=== PATIENT | female | born 1950 | race Caucasian/White ===

== ENCOUNTER 2022-11-13 20:14 | Emergency (ER) | payer MEDICARE ==
[2022-11-13 22:04] LABS: GLUCOSE, URINE (UA) NEGATIVE (NEGATIVE); KETONES,URINE (UA) TRACE mg/dL (NEGATIVE); LEUKOCYTE ESTERASE, URINE MODERATE (NEGATIVE); NITRITE,URINE POSITIVE (NEGATIVE); OCCULT BLOOD,URINE LARGE (NEGATIVE); PROTEIN,URINE >=300 mg/dL (NEGATIVE); UROBILINOGEN,URINE 1 (NORMAL) E.U./dL (NORMAL)
[2022-11-13 22:11] LABS: BILIRUBIN,URINE NEGATIVE (NEGATIVE); CLARITY,URINE CLOUDY (CLEAR); ICTOTEST,URINE NEGATIVE
[2022-11-13] MEDS ORDERED: NITROFURANTOIN MACRO 100 MG CAPSULE PO STA (22:12)
[2022-11-13 22:15] LABS: BACTERIA,URINE Few /HPF (None Seen); RBC,URINE TNTC /HPF (0-5); SQUAMOUS EPITHELIAL CELL,UR FEW Squamous (<= Few)
--- NOTE | 2022-11-13 22:15 | ED Physician Documentation ---
History of Present Illness - Stated complaint Stated Complaint: VAGINAL PAIN - Chief complaint Chief Complaint: Abd Pain - History obtained from History obtained from: Patient - History of Present Illness Timing: Today Pain level max: 2 Pain level now: 2 - Additonal information Additional information: 71-year-old female states that she has urinary frequency, dysuria and hematuria that started today. Worse with urination, nothing makes it better. No fevers. No chills. No back pain. No abdominal pain. Has had UTIs in the past that feels similar Review of Systems Constitutional: denies: Fever, Chills GI: denies: Vomiting, Diarrhea : reports: Dysuria, Frequency, Hesitancy, Hematuria Musculoskeletal: denies: Neck pain, Back pain Neurologic: denies: Headache PD PAST MEDICAL HISTORY - Past Medical History Past Medical History: No - Present Medications Home Medications: Ambulatory Orders Medication Instructions Recorded Confirmed Nitrofurantoin [Macrobid] 100 mg PO BID #10 cap 11/13/22 - Allergies Allergies/Adverse Reactions: Allergies Allergy/AdvReac Type Severity Reaction Status Date / Time acetaminophen Allergy Unknown Verified 11/13/22 20:23 [From Darvocet-N] codeine Allergy Rash Verified 11/13/22 20:23 dexchlorpheniramine Allergy Unknown Verified 11/13/22 20:23 hydrocodone Allergy Emesis Verified 11/13/22 20:23 phenylalanine Allergy Unknown Verified 11/13/22 20:23 propoxyphene Allergy Unknown Verified 11/13/22 20:23 [From Darvocet-N] Sulfa (Sulfonamide Allergy Hives Verified 11/13/22 20:23 Antibiotics) - Living Situation Living Arrangement: reports: At home - Social History Does the pt have substance abuse?: No - Family History Family history: reports: Non contributory PD ED PE NORMAL - Vitals Vital signs reviewed: Yes - General General: Alert and oriented X 3, No acute distress - HEENT HEENT: Moist mucous membranes - Neck Neck: Supple, no meningeal sign - Cardiac Cardiac: RRR - Respiratory Respiratory: No respiratory distress, Clear bilaterally - Abdomen Abdomen: Soft, Non tender, Non distended - Back Back: No CVA TTP, No spinal TTP - Derm Derm: Warm and dry - Neuro Neuro: Alert and oriented X 3 - Psych Psych: Normal mood, Normal affect Results - Vitals Vitals: Vital Signs - 24 hr 11/13/22 11/13/22 20:17 22:23 Temperature 36.5 C Heart Rate 90 82 Respiratory 16 16 Rate Blood Pressure 140/70 H 135/76 H O2 Saturation 98 97 - Labs Labs: Laboratory Tests 11/13/22 21:38 Urine Color BROWN Urine Clarity CLOUDY Urine pH 6.0 Ur Specific [place] 1.025 Urine Protein >=300 H Urine Glucose (UA) NEGATIVE Urine Ketones TRACE Urine Occult Blood LARGE H Urine Nitrite POSITIVE H Urine Bilirubin NEGATIVE Urine Urobilinogen 1 (NORMAL) Ur Leukocyte Esterase MODERATE H Urine RBC TNTC H Urine WBC 11-25 H Ur Squamous Epith Cells FEW Squamous Urine Bacteria Few Ur Microscopic Review INDICATED Urine Culture Comments INDICATED PD Medical Decision Making - ED course Complexity details: reviewed results, re-evaluated patient, considered differential, d/w patient ED course: Patient is well-appearing, nontoxic. Afebrile. Her urinalysis is consistent with UTI. We will have her follow-up with her doctor for further care as needed. I will place her on Macrobid for home. No evidence of sepsis or pyelonephritis. Patient counseled regarding signs and symptoms for which I believe and urgent re-evaluation would be necessary. Patient with good understanding of and agreement to plan and is comfortable going home at this time This document was made in part using voice recognition software. While efforts are made to proofread this document, sound alike and grammatical errors may occur. Departure - Departure Disposition: 01 Home, Self Care Clinical Impression: Urinary tract infection Qualifiers: Urinary tract infection type: acute cystitis Hematuria presence: with hematuria Qualified Code(s): N30.01 - Acute cystitis with hematuria Condition: Good Instructions: ED UTI Cystitis Female Follow-Up: your,doctor in 1 week if not better [Other] Prescriptions: Nitrofurantoin [Macrobid] 100 mg PO BID #10 cap Comments: Please take all antibiotics until gone. Please follow-up with your doctor for further care. Please return if you worsen. Your testing was consistent with a bladder infection today. The blood that you are seeing should resolve with treatment of the infection. Your prescription was sent to [facility]. Discharge Date/Time: 11/13/22 22:33
[2022-11-13 22:27] VITALS: BP 135/76
== END 2022-11-13 22:33 | disposition home or self-care (01) ==
LOC: ED 20:14
DX: N30.01 Acute cystitis with hematuria (principal)
CPT/HCPCS: 81001; 87086; 99283; A9270; 81003; 87181

== ENCOUNTER 2023-05-14 16:06 | Emergency (ER) | payer MEDICARE ==
[2023-05-14] MEDS ORDERED: PROPARACAINE 0.5% OPHTH DROPS 15 ML LEFTEYE STA (17:34)
--- NOTE | 2023-05-14 17:34 | ED Physician Documentation ---
PD HPI OPHTHO - Stated complaint Stated Complaint: LT EYE IRRITAION - Chief complaint Chief Complaint: Heent - History obtained from History obtained from: Patient (She had left eye irritation and burning today with tearing drainage. No visual change. She does have a history of glaucoma on drops.) PD PAST MEDICAL HISTORY - Past Medical History Past Medical History: Yes Cardiovascular: Hypertension, High cholesterol Respiratory: Asthma - Past Surgical History Past Surgical History: Yes Ortho: Spine surgery - Present Medications Home Medications: Ambulatory Orders Medication Instructions Recorded Confirmed Nitrofurantoin [Macrobid] 100 mg PO BID #10 cap 11/13/22 Erythromycin Base [Erythromycin 1 appful OP 5XD 7 Days #1 gm 05/14/23 Ophthalmic Ointment] - Allergies Allergies/Adverse Reactions: Allergies Allergy/AdvReac Type Severity Reaction Status Date / Time acetaminophen Allergy Unknown Verified 11/13/22 20:23 [From Darvocet-N] codeine Allergy Rash Verified 11/13/22 20:23 dexchlorpheniramine Allergy Unknown Verified 11/13/22 20:23 hydrocodone Allergy Emesis Verified 11/13/22 20:23 phenylalanine Allergy Unknown Verified 11/13/22 20:23 propoxyphene Allergy Unknown Verified 11/13/22 20:23 [From Darvocet-N] Sulfa (Sulfonamide Allergy Hives Verified 11/13/22 20:23 Antibiotics) - Social History Does the pt smoke?: No Smoking Status: Never smoker Does the pt drink ETOH?: No Does the pt have substance abuse?: No - Immunizations Immunizations are current?: Yes PD ED PE NORMAL - Vitals Vital signs reviewed: Yes - General General: Alert and oriented X 3, No acute distress - HEENT HEENT: EOMI, Other (Nonspecific conjunctivitis on the left eye. Pupils are equal and reactive with suggestion of cataracts. Adi-Pen on the left is 12) - Neck Neck: Supple, no meningeal sign, No bony TTP - Neuro Neuro: Alert and oriented X 3, Normal speech Results - Vitals Vitals: Vital Signs - 24 hr 05/14/23 16:41 Temperature 37.3 C Heart Rate 93 Respiratory 15 Rate Blood Pressure 145/61 H O2 Saturation 96 Oxygen O2 Source Room air PD Medical Decision Making - ED course ED course: Seem like a nonspecific Conjunctivitis. Her pressures are good, no evidence of glaucoma or other more serious cause of red eye. Departure - Departure Disposition: Home, Self Care Clinical Impression: Conjunctivitis Qualifiers: Conjunctivitis type: acute Acute conjunctivitis type: unspecified Laterality: left Qualified Code(s): H10.32 - Unspecified acute conjunctivitis, left eye Condition: Good Record reviewed to determine appropriate education?: Yes Instructions: ED Conjunctivitis Nonspecific Follow-Up: Pako Hooker MD [Provider Admit Priv/Credential] - Prescriptions: Erythromycin Base [Erythromycin Ophthalmic Ointment] 1 appful OP 5XD 7 Days #1 gm Comments: Follow-up with the fitness supervisor listed on this form if not better by . Return for new or worsening symptoms. Forms: PCP List
[2023-05-14] MEDS ORDERED: ERYTHROMYCIN OPHTH OINT 1 GM TUBE LEFTEYE STA (17:44)
[2023-05-14 18:02] VITALS: BP 140/78; O2SAT 99
== END 2023-05-14 18:01 | disposition home or self-care (01) ==
LOC: ED 16:06
DX: H10.32 Unspecified acute conjunctivitis, left eye (principal); I10 Essential (primary) hypertension
CPT/HCPCS: 99282; 99283; J3490

== ENCOUNTER 2023-10-23 11:05 | Emergency (ER) | payer MEDICARE, BC ==
[2023-10-23 11:27] VITALS: O2SAT 99
[2023-10-23 12:29] LABS: BASOPHILS # (AUTO) 0.1 10^3/uL (0.0-0.1); BASOPHILS % (AUTO) 0.5 %; EOSINOPHILS # (AUTO) 0.1 10^3/uL (0.0-0.7); EOSINOPHILS % (AUTO) 0.8 %; HCT - HEMATOCRIT 40.6 % (37.0-47.0); HGB - HEMOGLOBIN 12.7 g/dL (12.0-16.0); LYMPHOCYTES # (AUTO) 1.2 10^3/uL (1.5-3.5); LYMPHOCYTES % (AUTO) 10.9 %; MEAN CORPUSCULAR HEMOGLOBIN 29.7 pg (27.0-31.0); MEAN CORPUSCULAR HGB CONC 31.3 g/dL (32.0-36.0); MEAN CORPUSCULAR VOLUME 95.1 fL (81.0-99.0); MEAN PLATELET VOLUME 9.9 fL (7.9-10.8); MONOCYTES # (AUTO) 0.6 10^3/uL (0.0-1.0); NEUTROPHILS # (AUTO) 8.7 10^3/uL (1.5-6.6); NEUTROPHILS % (AUTO) 81.5 %; PLT - PLATELET COUNT 293 10^3/uL (130-450); RED BLOOD COUNT 4.27 10^6/uL (4.20-5.40); RED CELL DISTRIBUTION WIDTH 13.1 % (12.0-15.0); WHITE BLOOD COUNT 10.6 x10^3/uL (4.8-10.8)
--- NOTE | 2023-10-23 12:31 | ED Physician Documentation ---
History of Present Illness - Stated complaint Stated Complaint: DIZZINESS,FEELING UNWELL - Chief complaint Chief Complaint: Neuro - History obtained from History obtained from: Family - Additonal information Additional information: Patient is a 72-year-old female with advanced dementia presenting for evaluation of an episode of dizziness this morning. Per niece patient was sitting down on the couch and stated that she felt dizzy. No other symptoms were described. Patient states that she feels fine and does not have any complaints and is unsure of why she is here. Niece states that patient is back to her usual self now. She was able to ambulate at her baseline today. Review of Systems Unable to obtain: Dementia PD PAST MEDICAL HISTORY - Past Medical History Past Medical History: Yes Cardiovascular: Hypertension, High cholesterol Respiratory: Asthma Neuro: Dementia Endocrine/Autoimmune: None GI: None HEENT: None Musculoskeletal: Osteoarthritis - Past Surgical History Past Surgical History: Yes Ortho: Spine surgery - Present Medications Home Medications: Ambulatory Orders Medication Instructions Recorded Confirmed Memantine [Namenda] 10 mg PO BID 10/23/23 - Allergies Allergies/Adverse Reactions: Allergies Allergy/AdvReac Type Severity Reaction Status Date / Time acetaminophen Allergy Unknown Verified 10/23/23 11:15 [From Darvocet-N] codeine Allergy Rash Verified 10/23/23 11:15 dexchlorpheniramine Allergy Unknown Verified 10/23/23 11:15 hydrocodone Allergy Emesis Verified 10/23/23 11:15 phenylalanine Allergy Unknown Verified 10/23/23 11:15 propoxyphene Allergy Unknown Verified 10/23/23 11:15 [From Darvocet-N] Sulfa (Sulfonamide Allergy Hives Verified 10/23/23 11:15 Antibiotics) - Social History Does the pt smoke?: No Smoking Status: Never smoker Does the pt drink ETOH?: No Does the pt have substance abuse?: No - Immunizations Immunizations are current?: No Immunizations: Other immun not current - POLST Patient has POLST: No PD ED PE NORMAL - General General: No acute distress, Well developed/nourished. No: Alert and oriented X 3 (Alert and oriented to baseline) - HEENT HEENT: Atraumatic, PERRL, Moist mucous membranes, Pharynx benign - Neck Neck: Supple, no meningeal sign - Cardiac Cardiac: RRR, Strong equal pulses - Respiratory Respiratory: No respiratory distress, Clear bilaterally - Abdomen Abdomen: Normal bowel sounds, Soft, Non tender, Non distended - Derm Derm: Warm and dry - Extremities Extremities: No edema - Neuro Neuro: No motor deficit, No sensory deficit, Normal speech. No: Alert and oriented X 3 Results - Vitals Vitals: Vital Signs - 24 hr 10/23/23 10/23/23 10/23/23 11:15 11:24 12:12 Temperature 36.8 C Heart Rate 76 76 Respiratory 18 17 17 Rate Blood Pressure 148/70 H 133/61 H O2 Saturation 99 99 10/23/23 13:48 Temperature Heart Rate 80 Respiratory 16 Rate Blood Pressure 112/53 L O2 Saturation 99 Oxygen O2 Source Room air - EKG (time done) 1258 EKG releavant findings:: EKG personally interpreted by author of this note. Relevant findings are: Rate 63, normal sinus rhythm, no STEMI, QTc 414 - Labs Labs: Laboratory Tests 10/23/23 10/23/23 10/23/23 12:20 12:20 12:30 WBC 10.6 RBC 4.27 Hgb 12.7 Hct 40.6 MCV 95.1 MCH 29.7 MCHC 31.3 L RDW 13.1 Plt Count 293 MPV 9.9 Neut # (Auto) 8.7 H Lymph # (Auto) 1.2 L [place] # (Auto) 0.6 Eos # (Auto) 0.1 Baso # (Auto) 0.1 Absolute Nucleated RBC 0.00 Nucleated RBC % 0.0 Sodium 138 Potassium 4.0 Chloride 105 Carbon Dioxide 28 Anion Gap 5.0 L BUN 25 H Creatinine 0.7 Estimated GFR (MDRD) 82 L Glucose 100 Calcium 10.0 Total Bilirubin 0.3 AST 16 ALT 14 Alkaline Phosphatase 77 Total Protein 6.7 Albumin 4.3 Globulin 2.4 Albumin/Globulin Ratio 1.8 Lipase 44 Urine Color YELLOW Urine Clarity CLEAR Urine pH 7.0 Ur Specific [place] 1.010 Urine Protein NEGATIVE Urine Glucose (UA) NEGATIVE Urine Ketones NEGATIVE Urine Occult Blood NEGATIVE Urine Nitrite NEGATIVE Urine Bilirubin NEGATIVE Urine Urobilinogen 0.2 (NORMAL) Ur Leukocyte Esterase NEGATIVE Ur Microscopic Review NOT INDICATED Urine Culture Comments NOT INDICATED PD Medical Decision Making - ED course Complexity details: reviewed results, re-evaluated patient, d/w patient, d/w family ED course: Patient is a 72-year-old female with a history of dementia presenting for evaluation of a reported episode of feeling dizzy while sitting earlier today. Currently she is back to her usual self. Patient is not able to provide any meaningful history given her advanced dementia and history is provided by her niece who patient lives with. Patient has no focal deficits. Her vital signs here are stable. EKG is reviewed with a normal rhythm. CBC, chemistry and uri nalysis are unrevealing. Patient has not developed any symptoms here and is comfortable with plan for discharge and understands concerning symptoms to return for. Departure - Departure Disposition: 01 Home, Self Care Clinical Impression: Dementia, Dizziness Condition: Stable Instructions: ED Weakness UKO Comments: Maryellen's labs, EKG, and urine test are all Reassuring without any abnormalities. It is also reassuring that she is feeling better here and has been back to her usual self. Return to the ER with any recurrence of symptoms or any new concerns. Forms: PCP List Discharge Date/Time: 10/23/23 14:35
[2023-10-23 12:39] LABS: ALBUMIN 4.3 g/dL (3.2-5.5); ALBUMIN/GLOBULIN RATIO 1.8 (1.0-2.2); BILIRUBIN,TOTAL 0.3 mg/dL (0.2-1.0); CREATININE 0.7 mg/dL (0.6-1.3); TOTAL PROTEIN 6.7 g/dL (6.4-8.9)
[2023-10-23 12:48] LABS: BILIRUBIN,URINE NEGATIVE (NEGATIVE); GLUCOSE, URINE (UA) NEGATIVE (NEGATIVE); KETONES,URINE (UA) NEGATIVE (NEGATIVE); LEUKOCYTE ESTERASE, URINE NEGATIVE (NEGATIVE); NITRITE,URINE NEGATIVE (NEGATIVE); OCCULT BLOOD,URINE NEGATIVE (NEGATIVE); PROTEIN,URINE NEGATIVE (NEGATIVE); UROBILINOGEN,URINE 0.2 (NORMAL) E.U./dL (NORMAL)
[2023-10-23 12:49] LABS: CLARITY,URINE CLEAR (CLEAR)
[2023-10-23 13:57] VITALS: BP 112/53
== END 2023-10-23 14:35 | disposition home or self-care (01) ==
LOC: ED 11:05
DX: R42 Dizziness and giddiness (principal); F03.90 Unspecified dementia, unspecified severity, without behavioral disturbance, psychotic disturbance, mood disturbance, and anxiety
CPT/HCPCS: 36415; 80053; 81001; 81003; 83690; 85025; 87086; 93005; 99283

== ENCOUNTER 2023-11-12 00:06 | Emergency (ER) | payer MEDICARE, BC ==
[2023-11-12 00:41] LABS: BASOPHILS # (AUTO) 0.1 10^3/uL (0.0-0.1); BASOPHILS % (AUTO) 0.5 %; EOSINOPHILS # (AUTO) 0.2 10^3/uL (0.0-0.7); EOSINOPHILS % (AUTO) 1.9 %; HCT - HEMATOCRIT 38.9 % (37.0-47.0); HGB - HEMOGLOBIN 13.1 g/dL (12.0-16.0); LYMPHOCYTES # (AUTO) 1.9 10^3/uL (1.5-3.5); LYMPHOCYTES % (AUTO) 20.1 %; MEAN CORPUSCULAR HEMOGLOBIN 30.5 pg (27.0-31.0); MEAN CORPUSCULAR HGB CONC 33.7 g/dL (32.0-36.0); MEAN CORPUSCULAR VOLUME 90.5 fL (81.0-99.0); MEAN PLATELET VOLUME 9.8 fL (7.9-10.8); MONOCYTES # (AUTO) 0.6 10^3/uL (0.0-1.0); MONOCYTES % (AUTO) 6.5 %; NEUTROPHILS # (AUTO) 6.8 10^3/uL (1.5-6.6); NEUTROPHILS % (AUTO) 70.8 %; PLT - PLATELET COUNT 313 10^3/uL (130-450); RED CELL DISTRIBUTION WIDTH 13.2 % (12.0-15.0); WHITE BLOOD COUNT 9.6 x10^3/uL (4.8-10.8)
[2023-11-12 01:03] LABS: ALBUMIN 4.3 g/dL (3.2-5.5); ALBUMIN/GLOBULIN RATIO 1.9 (1.0-2.2); BILIRUBIN,TOTAL 0.3 mg/dL (0.2-1.0); CALCIUM 10.1 mg/dL (8.5-10.3); CREATININE 0.8 mg/dL (0.6-1.3); POTASSIUM 3.7 mmol/L (3.5-4.5); TOTAL PROTEIN 6.6 g/dL (6.4-8.9)
[2023-11-12 02:25] LABS: BILIRUBIN,URINE NEGATIVE (NEGATIVE); GLUCOSE, URINE (UA) NEGATIVE (NEGATIVE); KETONES,URINE (UA) TRACE mg/dL (NEGATIVE); LEUKOCYTE ESTERASE, URINE TRACE (NEGATIVE); NITRITE,URINE NEGATIVE (NEGATIVE); OCCULT BLOOD,URINE NEGATIVE (NEGATIVE); PROTEIN,URINE NEGATIVE (NEGATIVE); UROBILINOGEN,URINE 0.2 (NORMAL) E.U./dL (NORMAL)
[2023-11-12 02:27] LABS: CLARITY,URINE CLEAR (CLEAR)
--- NOTE | 2023-11-12 02:38 | ED Physician Documentation ---
History of Present Illness - Stated complaint Stated Complaint: NAUSEA/AMS - Chief complaint Chief Complaint: General - History obtained from History obtained from: Patient, Family - Additonal information Additional information: The patient is brought to the emergency department by her caregiver for chief complaint of nausea that started a couple of hours ago. The patient seemed fine yesterday but woke up stating that her stomach felt sick, and then she vomited a couple of times. The patient denies any abdominal pain. No changes in her bowel movements. No fevers or chills. No other complaints at this time. PD PAST MEDICAL HISTORY - Past Medical History Cardiovascular: Hypertension, High cholesterol Respiratory: Asthma Neuro: Dementia Endocrine/Autoimmune: None GI: None HEENT: None Musculoskeletal: Osteoarthritis - Past Surgical History Past Surgical History: Yes Ortho: Spine surgery - Present Medications Home Medications: Ambulatory Orders Medication Instructions Recorded Confirmed Memantine [Namenda] 10 mg PO BID 10/23/23 Ondansetron Odt [Zofran] 4 mg TL Q6H PRN #10 tablet 11/12/23 - Allergies Allergies/Adverse Reactions: Allergies Allergy/AdvReac Type Severity Reaction Status Date / Time acetaminophen Allergy Unknown Verified 10/23/23 11:15 [From Darvocet-N] codeine Allergy Rash Verified 10/23/23 11:15 dexchlorpheniramine Allergy Unknown Verified 10/23/23 11:15 hydrocodone Allergy Emesis Verified 10/23/23 11:15 phenylalanine Allergy Unknown Verified 10/23/23 11:15 propoxyphene Allergy Unknown Verified 10/23/23 11:15 [From Darvocet-N] Sulfa (Sulfonamide Allergy Hives Verified 10/23/23 11:15 Antibiotics) - Social History Does the pt smoke?: No Smoking Status: Never smoker Does the pt drink ETOH?: No Does the pt have substance abuse?: No - Immunizations Immunizations are current?: No Immunizations: Other immun not current - POLST Patient has POLST: No PD ED PE NORMAL - Vitals Vital signs reviewed: Yes - General General: No acute distress, Well developed/nourished, Other (Alert, pleasant, no apparent distress.) - HEENT HEENT: Atraumatic, EOMI, Moist mucous membranes - Neck Neck: Supple, no meningeal sign - Cardiac Cardiac: RRR, No murmur - Respiratory Respiratory: No respiratory distress, Clear bilaterally - Abdomen Abdomen: Soft, Non tender, Non distended - Derm Derm: Normal color, Warm and dry, No rash - Extremities Extremities: No deformity, No edema, No calf tenderness / cord - Neuro Neuro: Other (Oriented to self, can answer some questions. Otherwise neuroexam is grossly intact.) - Psych Psych: Normal mood, Normal affect Results - Vitals Vitals: Vital Signs - 24 hr 11/12/23 00:25 Temperature 36.2 C L Heart Rate 80 Respiratory 18 Rate Blood Pressure 118/62 O2 Saturation 100 Oxygen O2 Source Room air - Labs Labs: Laboratory Tests 11/12/23 11/12/23 11/12/23 00:37 00:37 01:55 WBC 9.6 RBC 4.30 Hgb 13.1 Hct 38.9 MCV 90.5 MCH 30.5 MCHC 33.7 RDW 13.2 Plt Count 313 MPV 9.8 Neut # (Auto) 6.8 H Lymph # (Auto) 1.9 [place] # (Auto) 0.6 Eos # (Auto) 0.2 Baso # (Auto) 0.1 Absolute Nucleated RBC 0.00 Nucleated RBC % 0.0 Sodium 140 Potassium 3.7 Chloride 106 Carbon Dioxide 23 Anion Gap 11.0 BUN 22 H Creatinine 0.8 Estimated GFR (MDRD) 70 L Glucose 134 H Calcium 10.1 Total Bilirubin 0.3 AST 16 ALT 16 Alkaline Phosphatase 68 Total Protein 6.6 Albumin 4.3 Globulin 2.3 Albumin/Globulin Ratio 1.9 Lipase 38 Urine Color YELLOW Urine Clarity CLEAR Urine pH 8.0 H Ur Specific [place] 1.010 Urine Protein NEGATIVE Urine Glucose (UA) NEGATIVE Urine Ketones TRACE Urine Occult Blood NEGATIVE Urine Nitrite NEGATIVE Urine Bilirubin NEGATIVE Urine Urobilinogen 0.2 (NORMAL) Ur Leukocyte Esterase TRACE H PD Medical Decision Making - ED course Complexity details: reviewed results, re-evaluated patient, considered differential, d/w patient, other (caregiver present) ED course: The patient's laboratory studies look good and the patient overall looked good herself. I discussed with the patient and caregiver that she may have a viral illness or it is possible that some of the food she ate did not agree with her. What ever the case, there is no evidence of a more serious condition at this time, either on examination, by history, or on diagnostic studies, and the patient is stable for discharge. We have discussed symptomatic management at home and the usual indications for return. Departure - Departure Disposition: 01 Home, Self Care Clinical Impression: Vomiting Qualifiers: Vomiting type: unspecified Nausea presence: with nausea Qualified Code(s): R11.2 - Nausea with vomiting, unspecified Condition: Stable Instructions: ED Nausea Vomiting Prescriptions: Ondansetron Odt [Zofran] 4 mg TL Q6H PRN #10 tablet PRN Reason: Nausea / Vomiting Comments: Your laboratory studies look good. You have been treated with antinausea medicine tonight to help your stomach feel better. Please program director group work your prescription at the [facility] pharmacy tomorrow and take the nausea medicine if needed. You most likely have one of the many viruses that go around and cause such symptoms, and these will usually last for few days. Please follow-up with your primary doctor as needed. Please do not try to eat any solid food until your stomach is feeling better. You should stick with just clear liquids until you have been able to go 24 hours without vomiting.
[2023-11-12] MEDS: ONDANSETRON ODT 4 MG TABLET TL STA ×2 (03:46→03:50)
[2023-11-12 03:53] VITALS: BP 150/89; O2SAT 98
== END 2023-11-12 03:51 | disposition home or self-care (01) ==
LOC: ED 00:06
DX: R11.2 Nausea with vomiting, unspecified (principal); I10 Essential (primary) hypertension; E78.00 Pure hypercholesterolemia, unspecified; F03.90 Unspecified dementia, unspecified severity, without behavioral disturbance, psychotic disturbance, mood disturbance, and anxiety; Z79.899 Other long term (current) drug therapy
CPT/HCPCS: 36415; 80053; 81003; 83690; 85025; 99283; 99284; Q0162